=== PATIENT | female | born 1945 | race Caucasian/White ===

== ENCOUNTER → 2022-04-06 | Day surgery (SDC) | payer MEDICARE, OTHER ==
[~2022-04-06] VITALS: Ht 162.6 cm; Wt 80.3 kg
[~2022-04-06] MED LIST: ACYCLOVIR400 MG PO; AMLODIPINE BESY10 MG PO; CALCIUM 600 +1 EA12 PO; COZAAR50 MG PO; FENOFIBRATE160 MG PO; FLONASE ALLER15.8 ML; LEVOCETIRIZINE D5 MG PO; METFORMIN HCL500 M3 PO; MOBIC7.5 MG PO; NORCO 5/3251 EACH PO; PAXIL20 MG PO; POTASSIUM CHLO10 ME1 PO; VITAMIN B-121000 MC1 PO; VITAMIN D350 MC3 PO
--- NOTE | 2022-04-06 14:33 | NUR ---
1420 ASCULTATION OF LUNGS WITH LESS LEFT UPPER AND LOWER LOBE RHONCHI. RIGHT LUNG SOUNDS ARE CLEAR. PATIENT WITH PRODUCTIVE COUGH.
== END | disposition home or self-care (01) ==
LOC: FAS 11:10
DX: K63.5 Polyp of colon (principal); K62.1 Rectal polyp; K57.30 Diverticulosis of large intestine without perforation or abscess without bleeding; K52.9 Noninfective gastroenteritis and colitis, unspecified; I10 Essential (primary) hypertension; E78.5 Hyperlipidemia, unspecified; M19.90 Unspecified osteoarthritis, unspecified site; J44.9 Chronic obstructive pulmonary disease, unspecified; E11.9 Type 2 diabetes mellitus without complications; G47.33 Obstructive sleep apnea (adult) (pediatric); Z80.0 Family history of malignant neoplasm of digestive organs; Z90.49 Acquired absence of other specified parts of digestive tract; Z99.89 Dependence on other enabling machines and devices; Z88.5 Allergy status to narcotic agent; Z79.1 Long term (current) use of non-steroidal anti-inflammatories (NSAID); Z79.84 Long term (current) use of oral hypoglycemic drugs; Z79.899 Other long term (current) drug therapy
CPT/HCPCS: 94640; J1610; J2704; J7120